=== PATIENT | male | born 1955 | race Asian ===

== ENCOUNTER 2022-03-20 22:22 | Emergency (ER) | payer BC, MEDICARE ==
[~2022-03-20] VITALS: Ht 167.6 cm; Wt 182.0 kg
[2022-03-20] MEDS ORDERED: HYDR25TA2 PO (22:31)
[2022-03-20] MEDS ORDERED: KETOROLAC TROMETHAMINE 30 MG/ML VIAL IVP ONE (23:00)
[2022-03-20 23:10] LABS: BASOPHILS % (AUTO) 0.6 % (0.0-2.0); EOSINOPHILS % (AUTO) 5.7 % (1.0-6.0); HEMATOCRIT 45.8 % (41-53); HEMOGLOBIN 15.6 g/dL (13.5-17.5); LYMPHOCYTES % (AUTO) 24.9 % (22.0-44.0); MEAN CORPUSCULAR HEMOGLOBIN 30.2 pg (26.0-34.0); MEAN CORPUSCULAR VOLUME 89 fL (80-100); MONOCYTES # (AUTO) 0.8 K/uL (0.1-1.0); MONOCYTES % (AUTO) 10.3 % (2.0-9.0); NEUTROPHILS # (AUTO) 4.6 K/uL (1.8-7.7); NEUTROPHILS % (AUTO) 58.5 % (40.0-70.0); PLATELET COUNT (AUTO) 180 K/uL (150-450); RED BLOOD CELL COUNT(AUTO) 5.17 MIL/uL (4.50-5.90); RED CELL DISTRIBUTION WIDTH 12.7 % (11.5-14.5)
[2022-03-20 23:19] LABS: ANION GAP 7 mmol/L (8-16); CALCIUM, TOTAL 9.1 mg/dL (8.8-10.5); CARBON DIOXIDE 30 mmol/L (22-29); CHLORIDE 103 mmol/L (98-107); CREATININE 1.16 mg/dL (0.60-1.30); GLOMERULAR FILTR. RATE CALC > 60 mL/min (>60); GLUCOSE,RANDOM 120 mg/dL (70-110); POTASSIUM 3.1 mmol/L (3.5-5.1); SODIUM SERUM 140 mmol/L (136-145); UREA NITROGEN, BLOOD 26 mg/dL (7-18)
[2022-03-20 23:24] LABS: ALANINE AMINOTRANSFERASE 28 U/L (12-78); ALBUMIN 3.7 g/dL (3.4-5.0); ALKALINE PHOSPHATASE 54 U/L (46-116); ASPARTATE AMINOTRANSFERASE 17 U/L (15-37); BILIRUBIN,TOTAL 0.4 mg/dL (0.1-1.0); LIPASE 89 U/L (73-393); TOTAL PROTEIN, SERUM 7.3 g/dL (6.4-8.2)
[2022-03-20 23:34] LABS: APPEARANCE,URINE CLEAR (CLEAR); BILIRUBIN,URINE NEGATIVE (NEGATIVE); GLUCOSE, URINE (UA) NEGATIVE (NEGATIVE); KETONES,URINE NEGATIVE (NEGATIVE); LEUKOCYTE ESTERASE ,URINE NEGATIVE (NEGATIVE); NITRATE,URINE NEGATIVE (NEGATIVE); OCCULT BLOOD,URINE LARGE (NEGATIVE); PH,URINE 5.5 (5.0-8.0); PROTEIN,URINE TRACE mg/dL (NEGATIVE); SPECIFIC GRAVITIY, URINE 1.025 (1.003-1.030); UROBILINOGEN,URINE <=1.0 mg/dL (<=1.0)
[2022-03-20 23:50] LABS: BACTERIA,URINE None Seen /HPF (None Seen); RBC,URINE 51-100 /HPF (0-2); WBC,URINE 0-2 /HPF (0-5)
[2022-03-21 00:02] VITALS: BP 156/92
[2022-03-21] MEDS ORDERED: FINA-27 PO (14:07)
[2022-03-21] MEDS ORDERED: ASPI81TA39 PO (14:07)
[2022-03-21] MEDS ORDERED: LOSA-381 PO (14:07)
[2022-03-21] MEDS ORDERED: AMLO2.5T96 PO (14:07)
[2022-03-21] MEDS ORDERED: ROSU10TA72 PO (14:07)
[2022-03-21] MEDS ORDERED: TAMS-13 PO (14:07)
[2022-03-21] MEDS ORDERED: METO25XL PO (14:07)
== END 2022-03-21 00:30 | disposition left against medical advice (07) ==
LOC: EMS 22:29
DX: R31.9 Hematuria, unspecified (principal); I10 Essential (primary) hypertension; N40.1 Benign prostatic hyperplasia with lower urinary tract symptoms
CPT/HCPCS: 36415; 80053; 81001; 83690; 85025; 85610; 85730; 93005; 96374; 99284; J1885

== ENCOUNTER 2022-03-21 12:52 | Emergency (ER) | payer MEDICARE ==
[~2022-03-21] VITALS: Ht 167.6 cm; Wt 75.0 kg
[~2022-03-21 12:52] MED LIST: HYDR25TA2 PO
[2022-03-21 13:52] VITALS: BP 140/91
[2022-03-21] MEDS ORDERED: ASPI81TA39 PO (14:07)
[2022-03-21] MEDS ORDERED: ROSU10TA72 PO (14:07)
[2022-03-21] MEDS ORDERED: METO25XL PO (14:07)
[2022-03-21] MEDS ORDERED: AMLO2.5T96 PO (14:07)
[2022-03-21] MEDS ORDERED: FINA-27 PO (14:07)
[2022-03-21] MEDS ORDERED: LOSA-381 PO (14:07)
[2022-03-21] MEDS ORDERED: TAMS-13 PO (14:07)
[2022-03-21 14:38] LABS: APPEARANCE,URINE CLEAR (CLEAR); BILIRUBIN,URINE NEGATIVE (NEGATIVE); GLUCOSE, URINE (UA) NEGATIVE (NEGATIVE); KETONES,URINE NEGATIVE (NEGATIVE); LEUKOCYTE ESTERASE ,URINE NEGATIVE (NEGATIVE); NITRATE,URINE NEGATIVE (NEGATIVE); OCCULT BLOOD,URINE NEGATIVE (NEGATIVE); PH,URINE 5.5 (5.0-8.0); PROTEIN,URINE TRACE mg/dL (NEGATIVE); SPECIFIC GRAVITIY, URINE 1.019 (1.003-1.030); UROBILINOGEN,URINE <=1.0 mg/dL (<=1.0)
[2022-03-21 15:02] LABS: BACTERIA,URINE None Seen /HPF (None Seen); RBC,URINE None Seen /HPF (0-2); SQUAMOUS EPITHELIAL CELL,UR None Seen /LPF (None Seen); WBC,URINE None Seen /HPF (0-5)
== END 2022-03-21 15:32 | disposition home or self-care (01) ==
LOC: EMS 12:52
DX: R31.9 Hematuria, unspecified (principal); I10 Essential (primary) hypertension; E78.00 Pure hypercholesterolemia, unspecified; Z79.899 Other long term (current) drug therapy
CPT/HCPCS: 74176; 81001; 99284; Z7502